=== PATIENT | female | born 1945 | race Caucasian/White ===

== ENCOUNTER 2016-12-19 08:28 | Emergency (ER) | payer MEDICARE, MEDICAID ==
[~2016-12-19 08:28] MED LIST: ASC500 PO; CHOL200020 PO; DEX4 PO; FOL1 PO; GABA300C PO; LORA-303 PO; LRZ.5T1 PO; ONDA4TAB12 PO; PROT40T PO; QTP100T PO; REG5 PO; SERT100T PO; TRAZ-151 PO; [UNRECOGNIZED DRUG - CODE] PO
[2016-12-19 08:45] VITALS: BP 129/72; PULSE 85; RESP 16; O2SAT 95
--- NOTE | 2016-12-19 09:10 | ED.REPORT ---
HPI-Head Prob / Injury Date of Service Dec 19, 2016 ED Provider: Vaughn Plasencia MD A 71 year old female with a history of breast cancer, Parkinson's, and hemodialysis presents to the ED via EMS from [facility] complaining of head trauma from fall that occurred earlier today. Per nurse note , the patient fell while being transferred from her bed to her wheelchair and did not lose consciousness at the time of the fall. Per nurse note,she has small hematoma and laceration on right side of head. The patient is not speaking loudly or clearly which makes history intake difficult. The patient does point to her head when asked where she is hurting. Per old records, the patient has a surgical history of pericardial window for tamponade in 2009, and s/p bilateral mastectomy for LT breast cancer. Nursing Notes Stated Complaint: FALL/HEAD INJURY Chief Complaint: Head, Face, Neck Trauma Nursing Notes Reviewed: Yes (JLGOV, C4 Imagings not recociled) Allergies: Coded Allergies: codeine (Verified Allergy, Severe, stomach pain,itching, 12/19/16) TAPE (Unverified Allergy, Unknown, 12/19/16) Scheduled Ascorbic Acid-Expunged Drug, Do Not Renew! (Vitamin C-Expunged Drug, Do Not Renew!) 500 Mg Tablet 1,000 MG PO DAILY Aspirin Chew (Aspirin Chew) 81 Mg Chew 81 MG PO DAILY Atorvastatin (Lipitor) 10 Mg Tab 10 MG PO DAILY Carbidopa/Levodopa ER 50-200 mg (Carbidopa/Levodopa ER 50-200 mg) 1 Each Tablet 1 TABLET PO DAILY Cholecalciferol (D3)-Expunged Drug, Do Not Re (Vitamin V-2-Nrdeakhg Drug, Do Not Renew!) 2,000 Unit Capsule 1,000 UNIT PO DAILY Cyanocobalamin (Vitamin B12) 500 Mcg Tablet 500 MCG PO DAILY Folic Acid-Expunged Drug, Do Not Renew! (Folic Acid-Expunged Drug, Do Not Renew! ) 1 Mg Tablet 1 MG PO DAILY Gabapentin-Expunged Drug, Do Not Renew! (Neurontin-Expunged Drug, Do Not Renew! ) 300 Mg Capsule 300 MG PO TID Lorazepam-Expunged Drug, Do Not Renew! (Lorazepam-Expunged Drug, Do Not Renew!) 0.5 Mg Tab 0.5 MG PO Q6 MetoCLOpramide-Expunged Drug, Do Not Renew! (MetoCLOpramide-Expunged Drug, Do Not Renew!) 5 Mg Tablet 10 MG PO Q6 take during the week of chemo Omeprazole (Omeprazole) 20 Mg Capsule.dr 20 MG PO DAILY Ondansetron (Ondansetron Odt) 4 Mg/Udtablet Tab.rapdis 8 MG PO BID take during the week of chemo only Polyethylene Glycol 3350 (Miralax) 17 Gm Powd.pack 17 GM PO DAILY QUEtiapine-Expunged Drug, Do Not Renew! (SEROquel-Expunged Drug, Do Not Renew!) 100 Mg Tablet 100 MG PO HS Sertraline-Expunged Drug, Choose New Med! (Sertraline-Expunged Drug, Choose New Med!) 100 Mg Tablet 25 MG PO HS Tamsulosin (Flomax) 0.4 Mg Capsule 0.4 MG PO DAILY Scheduled PRN Acetaminphen-Expunged Drug, Do Not Renew! (Acetaminphen-Expunged Drug, Do Not Renew!) 500 Mg Tablet 325 MG PO PRN Bisacodyl (Dulcolax Rectal) 10 Mg Supp.rect 10 MG RC DAILY PRN PRN For Constipation Docusate Sodium (Colace) 100 Mg Capsule 100 MG PO DAILY PRN PRN For Constipation Hydrocodone-Acetaminophen 5-325 mg (Hydrocodone-Acetaminophen 5-325 mg) 1 Each Tablet 0.5 TABLET PO MORNING PRN PRN For Pain Lorazepam-Expunged Drug, Do Not Renew! (Lorazepam-Expunged Drug, Do Not Renew!) 1 Mg Tab 1 MG PO TID PRN PRN Trazodone-Expunged Drug, Do Not Renew! (Trazodone-Expunged Drug, Do Not Renew!) 50 Mg Tablet 100 MG PO HS PRN PRN General Time Seen by Provider: 09:07 Chief Complaint Blunt head trauma Hx Obtained From: Patient, Daughter, EMS Unable to Obtain Hx: Patient condition (expressive aphasia (chronioc)) Arrived By: Ambulance Onset Occurred: Just prior to arrival Caused by: Blunt trauma Recent Healthcare: No recent doctor visit Similar Sx Previous: No Past Medical History Past Medical History History of breast CA History from the SNF notes (details unavailable): -Expressive aphasia, history of contractures on the right side -History of Parkinson's disease -Coronary Artery disease -Hyperlipidemia -History of "chronic embolism and thrombosis of unspecified deep veins of lower extremity,bilateral" - on ASA only per med list -History of dysphagia -History of cognitive communication deficit -history of "other non-thrombocytopenic purpura" end of hx from SNF notes Reports: GERD Past Surgical History History of pericardial window for tamponade on in 2009 Status post bilateral mastectomy for left breast CA Reports: Hysterectomy, Tonsillectomy Smoking History Former Smoker (quit in 2009) Social History Alcohol Use: "Social" Review of Systems Review of Systems Note: head pain. Complete sys rev & neg: except as marked. Physical Exam Initial Vital Signs Vital Signs (First) Date Time Temp Pulse Resp B/P Pulse Ox O2 Delivery O2 Flow Rate FiO2 12/19/16 08:45 37 85 16 129/72 95 Room Air Initial VS: Reviewed, Vital signs normal General/Constitutional: Awake Patient cannot converse or provide history. Patient is cachectic. No visible pain or discomfort. No additional injuries visible. Head / Eyes: Normocephalic, PERRL, EOMI Large frontal hematoma and laceration to right side of forehead. ENT: Atraumatic, Mucous membranes moist Neck: Atraumatic, Non-tender Patient cannot converse. Respiratory / Chest: Atraumatic, Breath sounds NL, Breath sounds = bilat, No respiratory distress Cardiovascular: Heart rate NL, Regular rhythm, Heart sounds NL (Heart tones normal. ) contractures on right side. contractures on right side. Hips move without signs of injury. Skin: Warm, Dry Abdomen: Atraumatic, No guarding, No rebound Back: Atraumatic, Full range of motion Wrist / Hand: Atraumatic, Full range of motion Interpretation & Diagnostics Lab Results Interpretation Result Diagram: 12/19/16 1050 12/19/16 1050 Test 12/19/16 10:50 White Blood Count 15.4th/mm3 (3.8-10.1) Red Blood Count 4.07mil/mm3 (3.90-5.20) Hemoglobin 11.9g/dL (12.0-15.6) Hematocrit 37.1% (35.0-46.0) Mean Corpuscular Volume 91.2fL (81-100) Mean Corpuscular Hemoglobin 29.2pg (27.0-35.0) Mean Corpuscular Hemoglobin Concent 32.1% (32.0-37.0) Red Cell Distribution Width 13.4% (12.3-15.4) Platelet Count 255bil/L (150-400) Neutrophils (%) (Auto) 90.1% (40-74) Lymphocytes (%) (Auto) 6.1% (14-46) Monocytes (%) (Auto) 3.3% (4-12) Eosinophils (%) (Auto) 0.1% (0-5) Basophils (%) (Auto) 0.2% (0-3) Prothrombin Time 10.1sec (8.1-12.5) Prothromb Time International Ratio 0.95ratio Activated Partial Thromboplast Time 24.9sec (22.8-33.0) Sodium Level 138mEq/L (134-144) Potassium Level 4.0mEq/L (3.5-5.2) Chloride Level 99mEq/L (97-108) Carbon Dioxide Level 25mmol/L (18-29) Blood Urea Nitrogen 14mg/dL (8-27) Creatinine 0.63mg/dL (0.57-1.00) Estimat Glomerular Filtration Rate 133mL/min (>59) Glucose Level 145mg/dL (60-99) Calcium Level 8.7mg/dL (8.5-10.1) Total Bilirubin 0.5mg/dL (0.0-1.2) Aspartate Amino Transf (AST/SGOT) 15U/L (0-50) Alanine Aminotransferase (ALT/SGPT) 7U/L (0-32) Alkaline Phosphatase 62U/L (25-165) Total Protein 5.9g/dL (6.4-8.4) Albumin 3.7g/dL (3.4-5.0) Lab Results Interpretation: CBC mild leukocytosis-no findings of infection however CMP normal CT Head Interpretation IMPRESSION: 1. Questionable foci of hyperdensity within the right frontal lobe as above. These are suspected to be related to volume averaging artifact, as they are seen only on one image in the axial view. However, given history of trauma as well as prominent right frontal adjacent scalp hematoma, punctate intraparenchymal hemorrhage cannot be definitively excluded. Repeat CT exam in 6 hours is recommended if clinically indicated. 2. Moderate atrophy and chronic microvascular changes. Dictated by: Zoe Meredith M.D. on 12/19/2016 at 9:53 Approved by: Zoe Meredith M.D. on 12/19/2016 at 9:56 IMPRESSION: 1. Previously identified punctate areas of relative hyperdensity within the right frontal lobe are no longer visualized. 2. Right frontal scalp hematoma. Dictated by: Zoe Meredith M.D. on 12/19/2016 at 17:10 Approved by: Zoe Meredith M.D. on 12/19/2016 at 17:11 Study: Head CT no contrast Interpretation / Wet Read by: Interpret - Radiologist Procedures Laceration Management Time: 11:18 Procedure Performed by: Allied health pract Consent / Setup / Site Prep: No consent - emergent, Hand hygiene observed Wound Length: 2 cm Local Anesthesia: Other (LET) Wound Preparation: Normal saline Debridement: None Repair Skin: Dermabond Suture Technique: Simple Post-Procedure / Complications: Dressing applied, No complications, Condition improved, Tolerated procedure well, Patient stable Re-Eval/Medical Decision Med Decision/Clinical Course This is a 71-year-old female on aspirin he fell in bed. She has contractures on the right and is not ambulatory. She has a chronic speech deficit. She has a large hematoma and a laceration of forehead so was sent for further management and evaluation. She denies tenderness of her neck by nodding no, and has no point tenderness, she has contractures in the right side which is a little bit of bruising on the left shoulder without clinical signs of fracture dislocation. No other signs of trauma were evident. A CT of the head was obtained and initial CT was limited by some motion artifact such the radiologist could not tell if there was motion artifact versus a small area of bleeding and recommended follow-up CT in [address] was then obtained at 6 hours and was normal without signs of trauma. Patient did have a laceration of forehead that was repaired with tissue adhesive by the mid-level provider. Daughter and longterm facility are updated. Patient is being discharged back to the longterm facility in stable condition. Source of Hx: Old records Differential Diagnosis: Positive: Blunt head trauma, Hematoma, Negative: Cerebral contusion, Closed head injury, Epidural hematoma, Epistaxis, Facial bone fracture, Gun shot wound head, Intracranial hemorrhage, Skull fracture, Subdural hematoma Discharge & Departure Primary Impression: Blunt head trauma Encounter type: initial encounter Qualified Code: S09.8XXA - Other specified injuries of head, initial encounter Additional Impression: Laceration of forehead Encounter type: initial encounter Qualified Code: S01.81XA - Laceration without foreign body of other part of head, initial encounter Disposition: Home All VS Reviewed: Yes Condition: Improved Additional Instructions: 1. She had a initial CT scan for which there was a little bit of movement and we could not be a certain as we wanted to be that there not been an injury to the brain. She therefore was held for 6 hours in the ED and had a repeat CT scan performed, this was normal and reveals no injury to the skull or brain- only the large forehead contusion. 2. Laceration was repaired with Dermabond. Do not apply antibiotic ointment or this will dissolve the glue. The glue will dissolve on its own in about 6 days. 3. Continue current medications. 4. Return if new or worsening symptoms Referrals: Sky Barker (PCP) EDSupervising Provider for APC: Sky Barker Scribe Attestation Portions of this note were transcribed by Rodolfo Briggs. I, Dr. Plasencia personally performed the history, physical exam and medical decision-making; I reviewed and confirmed the accuracy of the information in the transcribed note. Signed by: Dragan Mcconnell, 12/19/2016 1929. copies to: Sky Barker Matthew F MD Dec 19, 2016 09:10 Rodolfo Briggs Dec 19, 2016 09:18 Albert Bean PA-C Dec 19, 2016 11:20
[2016-12-19] MEDS ORDERED: Tissue Adhesive Liq (CS Supplied) TOPICAL ONE (09:15)
[2016-12-19] MEDS ORDERED: Lidocaine-Epi-Tetracaine Solution 3 mL Syringe TOPICAL ONE (09:15)
[2016-12-19] MEDS ORDERED: BISA10SU61 RC (09:24)
[2016-12-19] MEDS ORDERED: CARB1TAB37 PO (09:24)
[2016-12-19] MEDS ORDERED: ATRV10T PO (09:24)
[2016-12-19] MEDS ORDERED: DOCU-41 PO (09:24)
[2016-12-19] MEDS ORDERED: POLY17PO6 PO (09:24)
[2016-12-19] MEDS ORDERED: HYDR-4003 PO (09:24)
[2016-12-19] MEDS ORDERED: ASPI81TA3 PO (09:24)
[2016-12-19] MEDS ORDERED: CYAN500 PO (09:24)
[2016-12-19] MEDS ORDERED: OMEP20CA11 PO (09:24)
[2016-12-19] MEDS ORDERED: TAMS0.4C98 PO (09:24)
[2016-12-19] MEDS ORDERED: Acetaminophen 32.5 mg/mL 20 mL Liquid PO ONE ×2 (09:30)
--- NOTE | 2016-12-19 09:57 | DRSVH ---
PROCEDURE: CT BRAIN WITHOUT CONTRAST ([id number]) INDICATIONS: trauma TECHNIQUE: Noncontrast 4.5 mm thick angled axial sections acquired from the foramen magnum to the vertex, with c oronal reformats. COMPARISON: [facility], CT, BRAIN W/O CONTRAST, 09/01/2012, 17:53. FINDINGS: Image quality: Excellent. CSF spaces: Basal cisterns are patent. No extra-axial fluid collections. The ventricles are symmet slim in size and shape. Brain: No intracranial masses. There are two, ill-defined area of punctate relative hyperdensity wit hin the right frontal lobe seen on series 2 images 15 and 16. There best seen on axial views and much less visible on coronal view. There is cerebral volume loss for age, with resultant ventricular and sulcal prominence. There are periventricular and deep white matter chronic small vessel ischemic roya nges. There is intracranial internal carotid artery atherosclerosis. Skull and face: Calvarium and visualized facial bones appear intact, without suspicious lesions. Pr ominent right frontal scalp hematoma is present. Sinuses: Visualized sinuses demonstrate a coastal thickening and fluid to a significant degree in th e right sphenoid sinus. Scattered areas of thickening and fluid, minimal are noted in the ethmoid and maxillary sinuses. IMPRESSION: 1. Questionable foci of hyperdensity within the right frontal lobe as above. These are suspected to b e related to volume averaging artifact, as they are seen only on one image in the axial view. However , given history of trauma as well as prominent right frontal adjacent scalp hematoma, punctate intrap arenchymal hemorrhage cannot be definitively excluded. Repeat CT exam in 6 hours is recommended if cl inically indicated. 2. Moderate atrophy and chronic microvascular changes. Dictated by: Zoe Meredith M.D. on 12/19/2016 at 9:53 Approved by: Zoe Meredith M.D. on 12/19/2016 at 9:56
[2016-12-19 10:30] VITALS: BP 115/66; PULSE 64; RESP 20; O2SAT 97
[2016-12-19 11:04] LABS: BASOPHILS % (AUTO) 0.2 % (0-3); EOSINOPHILS % (AUTO) 0.1 % (0-5); MONOCYTES % (AUTO) 3.3 % (4-12); Mean Corpuscular Hemoglobin 29.2 pg (27.0-35.0); Mean Corpuscular Volume 91.2 fL (81-100); NEUTROPHILS % (AUTO) 90.1 % (40-74); Platelet Count 255 bil/L (150-400)
[2016-12-19 11:25] LABS: INR 0.95 ratio
[2016-12-19 13:00] VITALS: BP 109/62; PULSE 71; RESP 20; O2SAT 94
--- NOTE | 2016-12-19 17:12 | DRSVH ---
PROCEDURE: CT BRAIN WITHOUT CONTRAST ([id number]) INDICATIONS: FU CT TECHNIQUE: Noncontrast 4.5 mm thick angled axial sections acquired from the foramen magnum to the vertex, with c oronal reformats. COMPARISON: [facility], CT, CT BRAIN WO MATTY, 12/19/2016, 9:29. FINDINGS: Image quality: Excellent. CSF spaces: Basal cisterns are patent. No extra-axial fluid collections. The ventricles are symmet slim in size and shape. Brain: No intracranial masses. The previous identified punctate areas of hyperdensity within the rig ht frontal lobe are no longer visualized. There is cerebral volume loss for age, with resultant ventr icular and sulcal prominence. There are periventricular and deep white matter chronic small vessel i schemic changes. There is intracranial internal carotid artery atherosclerosis. Skull and face: Calvarium and visualized facial bones appear intact, without suspicious lesions. Ri ght frontal scalp hematoma is noted. Sinuses: Visualized sinuses and mastoids are clear. IMPRESSION: 1. Previously identified punctate areas of relative hyperdensity within the right frontal lobe are no longer visualized. 2. Right frontal scalp hematoma. Dictated by: Zoe Meredith M.D. on 12/19/2016 at 17:10 Approved by: Zoe Meredith M.D. on 12/19/2016 at 17:11
[2016-12-19 18:53] VITALS: BP 128/68; PULSE 70; RESP 16; O2SAT 95
== END 2016-12-19 18:50 | disposition home or self-care (01) ==
LOC: SED 08:28 → EDBD 08:28 → SED 18:50
DX: S01.81XA Laceration without foreign body of other part of head, initial encounter (principal); W06.XXXA Fall from bed, initial encounter; Y93.89 Activity, other specified; Y99.8 Other external cause status; Y92.122 Bedroom in nursing home as the place of occurrence of the external cause; K21.9 Gastro-esophageal reflux disease without esophagitis; I25.10 Atherosclerotic heart disease of native coronary artery without angina pectoris; E78.5 Hyperlipidemia, unspecified; Z87.891 Personal history of nicotine dependence; Z85.3 Personal history of malignant neoplasm of breast; Z79.52 Long term (current) use of systemic steroids; Z88.5 Allergy status to narcotic agent
CPT/HCPCS: 12011; 36415; 70450; 80053; 85025; 85610; 85730; 96374; 99285; J2060